=== PATIENT | male | born 1945 | race Caucasian/White ===

== ENCOUNTER 2016-12-04 07:33 | Inpatient (IN) | payer MEDICARE, OTHER ==
[~2016-12-04] VITALS: Ht 175.3 cm; Wt 74.8 kg
[2016-12-04] MEDS ORDERED: SODIUM CHLORIDE 0.9% 1,000 ML IV ONE (07:43)
[2016-12-04 08:27] LABS: HEMATOCRIT. 38.1 % (42.0-52.0); HEMOGLOBIN. 12.9 g/dL (14.0-18.0); MEAN CORPUSCULAR HEMOGLOBIN 29.8 pg (28.0-32.0); MEAN CORPUSCULAR VOLUME 88.2 fL (80.0-94.0); MEAN PLATELET VOLUME 9.9 fl (7.4-10.4); PLATELET 417 x1000/uL (130-400); RED BLOOD CELL COUNT 4.33 mill/uL (4.7-6.1); RED CELL DISTRIBUTION WIDTH 17.2 % (11.6-14.6)
[2016-12-04 08:36] LABS: INR 1.2; PROTHROMBIN TIME 12.3 sec (9.4-11.6)
[2016-12-04 08:45] LABS: CARBON DIOXIDE 17 mEq/L (21-32); CHLORIDE 99 mEq/L (98-107); ETHANOL BLOOD < 10 mg/dL; TROPONIN I 0.07 ng/mL (0.00-0.04)
[2016-12-04] MEDS ORDERED: SODIUM CHLORIDE 0.9% 1000ML BAG (SEPSIS BOLUS) IV ONE (09:00)
[2016-12-04] MEDS ORDERED: PIPERACILLIN/TAZ 3.375G PREMIX 50 ML IV ONE (09:00)
[2016-12-04] MEDS ORDERED: VANCOMYCIN 1 G PREMIX 200 ML IV ONE (09:00)
[2016-12-04 09:11] LABS: PLATELET ESTIMATE SLIGHTLY INCREASED
[2016-12-04 11:13] LABS: GLUCOSE URINE 2+ (NEGATIVE); KETONES URINE NEGATIVE (NEGATIVE); LEUKOCYTE ESTERASE URINE NEGATIVE (NEGATIVE); NITRITE URINE NEGATIVE (NEGATIVE); OCCULT BLOOD URINE 3+ (NEGATIVE); PROTEIN URINE 1+ (NEGATIVE); SPECIFIC GRAVITY URINE 1.008 (1.005-1.030)
[2016-12-04 11:21] LABS: CLARITY URINE CLEAR (CLEAR); COLOR URINE YELLOW (YELLOW)
[2016-12-04 11:43] LABS: *AMPHETAMINES SCREEN URINE NEGATIVE (NEGATIVE); *BARBITURATES SCREEN URINE NEGATIVE (NEGATIVE); *BENZODIAZEPINES SCREEN URINE NEGATIVE (NEGATIVE); *COCAINE SCREEN URINE NEGATIVE (NEGATIVE); CANNABINOID URINE SCREEN NEGATIVE (NEGATIVE); METHADONE URINE SCREEN NEGATIVE (NEGATIVE); OPIATES URINE SCREEN NEGATIVE (NEGATIVE); PHENCYCLIDINE URINE SCREEN NEGATIVE (NEGATIVE)
[2016-12-04] MEDS ORDERED: HYDROCODONE/ACETAMINOPHEN 5/325MG TABLET PO PRN (12:15)
[2016-12-04] MEDS ORDERED: ACETAMINOPHEN 325MG TABLET PO PRN (12:15)
[2016-12-04] MEDS ORDERED: MAGNESIUM/ALUMINUM HYDROXIDE/SIMETHICONE 30ML UDC PO PRN (12:15)
[2016-12-04] MEDS ORDERED: CLONIDINE 0.1MG TABLET PO PRN (12:15)
[2016-12-04] MEDS ORDERED: IPRATROPIUM/ALBUTEROL 0.5-3(2.5)MG/3ML NEB INH PRN (12:15)
[2016-12-04] MEDS ORDERED: ONDANSETRON HCL 4MG/2ML VIAL IV PRN (12:15)
[2016-12-04 12:30] VITALS: BP 120/70
[2016-12-04] MEDS ORDERED: PIPERACILLIN/TAZ 3.375G PREMIX 50 ML IV SCH (12:45)
[2016-12-04] MEDS: ENOXAPARIN 40MG/0.4ML SYR SUBCUT SCH (13:00)
[2016-12-04] MEDS: PIPERACILLIN/TAZ 3.375G PREMIX 50 ML IV SCH ×2 (16:26→22:12)
[2016-12-04] MEDS: SODIUM CHLORIDE 0.9% 1,000 ML IV SCH (16:27)
[2016-12-04 18:25] LABS: CREATINE KINASE MB FRACTION 5.8 ng/mL (0.5-3.6)
[2016-12-04 18:39] LABS: TROPONIN I 1.7 ng/mL (0.00-0.04)
[2016-12-04 20:00] VITALS: BP 155/83
[2016-12-04] MEDS ORDERED: DEXTROSE 50% WATER 50ML SYRINGE IV PRN (20:45)
[2016-12-04] MEDS: BLOOD SUGAR DIAGNOSTIC STRIP TEST SCH (21:30)
[2016-12-04] MEDS: INSULIN LISPRO 100 UNITS/ML SUBCUT SCH (21:38)
[2016-12-05] VITALS: BP 125/51
[2016-12-05 00:13] LABS: TROPONIN I 3.5 ng/mL (0.00-0.04)
[2016-12-05 04:00] VITALS: BP 114/51
[2016-12-05] MEDS: PIPERACILLIN/TAZ 3.375G PREMIX 50 ML IV SCH ×3 (06:23→21:09)
[2016-12-05] MEDS: SODIUM CHLORIDE 0.9% 1,000 ML IV SCH ×2 (06:23→15:40)
[2016-12-05] MEDS: BLOOD SUGAR DIAGNOSTIC STRIP TEST SCH ×4 (06:28→20:22)
[2016-12-05 07:52] LABS: BASOPHILS % 0.6 % (0.0-2.0); EOSINOPHILS % 0.5 % (0.0-5.0); HEMATOCRIT. 31.2 % (42.0-52.0); HEMOGLOBIN. 10.6 g/dL (14.0-18.0); LYMPHOCYTES % 11.1 % (20.0-50.0); MEAN CORPUSCULAR HEMOGLOBIN 29.8 pg (28.0-32.0); MEAN CORPUSCULAR VOLUME 87.2 fL (80.0-94.0); MEAN PLATELET VOLUME 9.4 fl (7.4-10.4); MONOCYTES % 8.1 % (2.0-8.0); NEUTROPHILS % 79.7 % (40.0-76.0); PLATELET 289 x1000/uL (130-400); RED BLOOD CELL COUNT 3.58 mill/uL (4.7-6.1); RED CELL DISTRIBUTION WIDTH 17.2 % (11.6-14.6)
[2016-12-05 08:00] VITALS: BP 127/70
[2016-12-05 08:13] LABS: AMYLASE 84 IU/L (25-115); CARBON DIOXIDE 25 mEq/L (21-32); CHLORIDE 103 mEq/L (98-107); CREATINE KINASE MB FRACTION 5.1 ng/mL (0.5-3.6)
[2016-12-05 08:25] LABS: TROPONIN I 3.6 ng/mL (0.00-0.04)
[2016-12-05] MEDS: INSULIN LISPRO 100 UNITS/ML SUBCUT SCH ×4 (08:40→20:24)
[2016-12-05 12:00] VITALS: BP 120/69
[2016-12-05] MEDS ORDERED: POTASSIUM CHLORIDE INJ 40 MEQ in DEXT 5% WATER 250 ML IV SCH (12:00)
[2016-12-05] MEDS ORDERED: POTASSIUM CHLORIDE 20MEQ TABLET SR PO SCH (14:30)
[2016-12-05 16:00] VITALS: BP 183/93
[2016-12-05] MEDS: ENOXAPARIN 40MG/0.4ML SYR SUBCUT SCH (16:46)
[2016-12-05 20:00] VITALS: BP 160/92
[2016-12-05] MEDS: POTASSIUM CHLORIDE 20MEQ TABLET SR PO SCH (21:10)
[2016-12-06] VITALS: BP_SYST 155; BP_SYST 158; BP_DIAS 82
[2016-12-06] MEDS: PIPERACILLIN/TAZ 3.375G PREMIX 50 ML IV SCH ×4 (03:20→20:39)
[2016-12-06] MEDS: SODIUM CHLORIDE 0.9% 1,000 ML IV SCH ×2 (06:21→18:20)
[2016-12-06] MEDS: BLOOD SUGAR DIAGNOSTIC STRIP TEST SCH ×4 (06:21→20:49)
[2016-12-06 07:18] LABS: BASOPHILS % 0.8 % (0.0-2.0); EOSINOPHILS % 0.6 % (0.0-5.0); HEMOGLOBIN. 10.7 g/dL (14.0-18.0); LYMPHOCYTES % 17.4 % (20.0-50.0); MEAN CORPUSCULAR HEMOGLOBIN 30.2 pg (28.0-32.0); MEAN CORPUSCULAR VOLUME 87.4 fL (80.0-94.0); MEAN PLATELET VOLUME 9.6 fl (7.4-10.4); MONOCYTES % 10.2 % (2.0-8.0); PLATELET 280 x1000/uL (130-400); RED BLOOD CELL COUNT 3.55 mill/uL (4.7-6.1); RED CELL DISTRIBUTION WIDTH 17.1 % (11.6-14.6)
[2016-12-06] MEDS: INSULIN LISPRO 100 UNITS/ML SUBCUT SCH ×4 (07:50→20:52)
[2016-12-06 08:00] VITALS: BP 156/58
[2016-12-06 08:56] LABS: CHLORIDE 104 mEq/L (98-107)
[2016-12-06 09:07] LABS: CARBON DIOXIDE 27 mEq/L (21-32)
[2016-12-06] MEDS: POTASSIUM CHLORIDE 20MEQ TABLET SR PO SCH (09:42)
[2016-12-06 10:53] LABS: HEPATITIS B CORE AB IGM NEGATIVE; HEPATITIS B SURFACE ANTIGEN NEGATIVE
[2016-12-06 12:00] VITALS: BP 140/80
[2016-12-06] MEDS: ENOXAPARIN 40MG/0.4ML SYR SUBCUT SCH (13:19)
[2016-12-06 14:54] LABS: HEPATITIS A AB IGM NEGATIVE (NEGATIVE)
[2016-12-06 16:00] VITALS: BP 145/81
[2016-12-06 20:00] VITALS: BP 148/98
[2016-12-07] VITALS: BP_SYST 146; BP_SYST 171; BP_DIAS 76; BP_DIAS 82
[2016-12-07] MEDS: SODIUM CHLORIDE 0.9% 1,000 ML IV SCH (00:39)
[2016-12-07] MEDS: PIPERACILLIN/TAZ 3.375G PREMIX 50 ML IV SCH ×2 (02:57→08:33)
[2016-12-07 04:15] VITALS: BP 146/89
[2016-12-07] MEDS: BLOOD SUGAR DIAGNOSTIC STRIP TEST SCH (06:31)
[2016-12-07] MEDS: INSULIN LISPRO 100 UNITS/ML SUBCUT SCH (07:29)
[2016-12-07 08:20] VITALS: BP 161/91
[2016-12-07 08:42] VITALS: BP 161/91
[2016-12-07] MEDS ORDERED: POTASSIUM CHLORIDE 20MEQ TABLET SR PO SCH (09:00)
[2016-12-07 11:30] VITALS: BP 134/81
[2016-12-07 11:37] VITALS: BP 134/81
== END 2016-12-07 12:30 | disposition home or self-care (01) | DRG 871 ==
LOC: ER 07:47 → CANRESERV 09:45 → ENRESERV 09:45 → EDBEDREQTM 10:14 → EDBEDREQ 10:14 → EDBEDREQSVC 10:14 → ENRESERV 10:42 → CANRESERV 10:42 → EDBEDREQSVC 10:58 → EDBEDREQ 10:58 → ENRESERV 11:00 → 6WST 11:13
PROVIDERS: ADMIT Internal Medicine; ATTEND Internal Medicine
DX: A41.9 Sepsis, unspecified organism (principal); K85.90 Acute pancreatitis without necrosis or infection, unspecified; K83.0 Cholangitis; E44.0 Moderate protein-calorie malnutrition; K80.00 Calculus of gallbladder with acute cholecystitis without obstruction; C25.9 Malignant neoplasm of pancreas, unspecified; E87.1 Hypo-osmolality and hyponatremia; K86.1 Other chronic pancreatitis; E11.65 Type 2 diabetes mellitus with hyperglycemia; I07.1 Rheumatic tricuspid insufficiency; D63.0 Anemia in neoplastic disease; E78.00 Pure hypercholesterolemia, unspecified; E78.5 Hyperlipidemia, unspecified; E86.0 Dehydration; E87.6 Hypokalemia; I10 Essential (primary) hypertension; I27.20 Pulmonary hypertension, unspecified; Z68.24 Body mass index [BMI] 24.0-24.9, adult; Z86.73 Personal history of transient ischemic attack (TIA), and cerebral infarction without residual deficits
CPT/HCPCS: 36415; 70450; 71010; 74000; 74181; 76705; 78227; 80053; 80061; 80076; 80305; 81001; 82150; 82248; 82550; 82553; 82962; 83036; 83605; 83690; 83735; 83880; 84443; 84484; 85025; 85610; 86301; 86705; 86709; 86803; 87040; 87077; 87086; 87340; 93005; 93306; 93970; 96361; 96365; 96368; 97162; 97166; 99291; A9537; G0482; J1650; J1815; J2543; J3370; J3480; J7030; J7060

== ENCOUNTER 2017-06-29 09:36 | Inpatient (IN) | payer MEDICARE, OTHER ==
[~2017-06-29] VITALS: Ht 182.9 cm; Wt 59.0 kg
[2017-06-29] VITALS: BP 99/60
[2017-06-29] MEDS ORDERED: DEXTROSE 50% WATER 50ML SYRINGE IV ONE (09:50)
[2017-06-29 10:50] LABS: BASOPHILS % 0.3 % (0.0-2.0); EOSINOPHILS % 0.1 % (0.0-5.0); HEMATOCRIT. 26.3 % (42.0-52.0); HEMOGLOBIN. 8.9 g/dL (14.0-18.0); LYMPHOCYTES % 32.7 % (20.0-50.0); MEAN CORPUSCULAR HEMOGLOBIN 30.5 pg (28.0-32.0); MEAN CORPUSCULAR VOLUME 90.3 fL (80.0-94.0); MEAN PLATELET VOLUME 7.6 fl (7.4-10.4); MONOCYTES % 13.5 % (2.0-8.0); NEUTROPHILS % 53.4 % (40.0-76.0); PLATELET 206 x1000/uL (130-400); RED BLOOD CELL COUNT 2.92 mill/uL (4.7-6.1); RED CELL DISTRIBUTION WIDTH 16.4 % (11.6-14.6)
[2017-06-29 10:57] LABS: INR 1.3; PROTHROMBIN TIME 13.1 sec (9.4-11.6)
[2017-06-29 10:59] LABS: CHLORIDE 104 mEq/L (98-107)
[2017-06-29] MEDS ORDERED: LOT105 MT (11:08)
[2017-06-29] MEDS ORDERED: LISI40TA4 PO (11:08)
[2017-06-29] MEDS ORDERED: METF850T2 MT (11:09)
[2017-06-29] MEDS ORDERED: GLIP10TA10 PO (11:09)
[2017-06-29] MEDS ORDERED: ATEN-42 MT (11:10)
[2017-06-29] MEDS ORDERED: CHOL500010 MT (11:10)
[2017-06-29] MEDS ORDERED: LOPE2TAB26 PO (11:11)
[2017-06-29] MEDS ORDERED: DIPHENHYDRAMINE 50MG/ML VIAL IV PRN (12:30)
[2017-06-29] MEDS ORDERED: DOCUSATE SODIUM 100MG CAPSULE PO PRN (12:30)
[2017-06-29] MEDS ORDERED: GUAIFENESIN 200MG/10ML SUGAR FREE UDC PO PRN (12:30)
[2017-06-29] MEDS ORDERED: NITROGLYCERIN 0.4MG TABLET SL SL PRN (12:30)
[2017-06-29] MEDS ORDERED: CLONIDINE 0.1MG TABLET PO PRN (12:30)
[2017-06-29] MEDS ORDERED: DEXTROSE 50% WATER 50ML SYRINGE IV PRN (12:30)
[2017-06-29] MEDS ORDERED: MAGNESIUM/ALUMINUM HYDROXIDE/SIMETHICONE 30ML UDC PO PRN (12:30)
[2017-06-29] MEDS ORDERED: NA PHOS,M-B/NA PHOS,DI-BA ENEMA 118ML PR PRN (12:30)
[2017-06-29] MEDS ORDERED: ZOLPIDEM TARTRATE 5MG TABLET PO PRN (12:30)
[2017-06-29] MEDS ORDERED: ONDANSETRON HCL 4MG/2ML VIAL IV PRN (12:30)
[2017-06-29] MEDS ORDERED: IPRATROPIUM/ALBUTEROL 0.5-3(2.5)MG/3ML NEB INH PRN (12:30)
[2017-06-29] MEDS ORDERED: ACETAMINOPHEN 325MG TABLET PO PRN (12:30)
[2017-06-29] MEDS ORDERED: TRAMADOL 50MG TABLET PO PRN (12:30)
[2017-06-29] MEDS ORDERED: POTASSIUM CHLORIDE 20MEQ/PACKET PO ONE (12:45)
[2017-06-29] MEDS ORDERED: MAGNESIUM 2 G PREMIX 50 ML IV ONE (12:45)
[2017-06-29 13:33] LABS: KETONES URINE NEGATIVE (NEGATIVE); LEUKOCYTE ESTERASE URINE NEGATIVE (NEGATIVE); NITRITE URINE NEGATIVE (NEGATIVE); OCCULT BLOOD URINE NEGATIVE (NEGATIVE); PH URINE 5.5 (4.5-8.0); PROTEIN URINE NEGATIVE (NEGATIVE); SPECIFIC GRAVITY URINE 1.008 (1.005-1.030); UROBILINOGEN URINE 0.2 E.U./dL (0.2-1.0)
[2017-06-29] MEDS ORDERED: LEVOFLOXACIN 500MG PREMIX 100 ML IV NR (13:33)
[2017-06-29 13:35] LABS: CLARITY URINE SL HAZY (CLEAR); COLOR URINE YELLOW (YELLOW)
[2017-06-29 14:00] VITALS: BP 102/77
[2017-06-29] MEDS ORDERED: SODIUM CHLORIDE 0.9% 1000ML BAG (SEPSIS BOLUS) IV ONE (14:15)
[2017-06-29 14:20] VITALS: BP 109/77
[2017-06-29 16:00] VITALS: BP 121/75
[2017-06-29] MEDS: METRONIDAZOLE 500 MG PREMIX 100 ML IV SCH (16:55)
[2017-06-29] MEDS: ENOXAPARIN 40MG/0.4ML SYR SUBCUT SCH (16:56)
[2017-06-29] MEDS: BLOOD SUGAR DIAGNOSTIC STRIP TEST SCH ×2 (17:14→21:39)
[2017-06-29] MEDS: INSULIN LISPRO 100 UNITS/ML SUBCUT SCH ×2 (17:15→21:00)
[2017-06-29] MEDS ORDERED: CEFTRIAXONE 1 G PREMIX 50 ML IV SCH (18:00)
[2017-06-29 18:11] LABS: CREATINE KINASE MB FRACTION 1.2 ng/mL (0.5-3.6)
[2017-06-29 20:00] VITALS: BP 97/63
[2017-06-29] MEDS: FAMOTIDINE 20MG TABLET PO SCH (21:41)
[2017-06-30] VITALS: BP 99/60
[2017-06-30 01:52] LABS: CREATINE KINASE MB FRACTION 0.9 ng/mL (0.5-3.6)
[2017-06-30 04:00] VITALS: BP 110/70
[2017-06-30] MEDS: BLOOD SUGAR DIAGNOSTIC STRIP TEST SCH ×4 (07:20→21:21)
[2017-06-30] MEDS: INSULIN LISPRO 100 UNITS/ML SUBCUT SCH ×4 (07:50→21:00)
[2017-06-30 08:00] VITALS: BP 99/57
[2017-06-30] MEDS: FAMOTIDINE 20MG TABLET PO SCH ×2 (09:30→20:07)
[2017-06-30] MEDS: METRONIDAZOLE 500 MG PREMIX 100 ML IV SCH ×3 (09:33→20:05)
[2017-06-30 12:00] VITALS: BP 114/77
[2017-06-30] MEDS: ENOXAPARIN 40MG/0.4ML SYR SUBCUT SCH (15:52)
[2017-06-30] MEDS: LEVOFLOXACIN 500MG PREMIX 100 ML IV SCH (15:53)
[2017-06-30 16:00] VITALS: BP 129/90
[2017-06-30] MEDS: CEFTRIAXONE 1 G PREMIX 50 ML IV SCH (17:48)
[2017-06-30 20:00] VITALS: BP 117/69
[2017-07-01 00:12] VITALS: BP 125/78
[2017-07-01] MEDS: METRONIDAZOLE 500 MG PREMIX 100 ML IV SCH ×3 (03:24→22:27)
[2017-07-01 04:00] VITALS: BP 98/57
[2017-07-01] MEDS: BLOOD SUGAR DIAGNOSTIC STRIP TEST SCH ×4 (07:40→21:00)
[2017-07-01] MEDS: INSULIN LISPRO 100 UNITS/ML SUBCUT SCH ×4 (07:40→21:00)
[2017-07-01 07:48] VITALS: BP 107/68
[2017-07-01] MEDS: CEFTRIAXONE 1 G PREMIX 50 ML IV SCH ×2 (09:00→10:40)
[2017-07-01] MEDS: FAMOTIDINE 20MG TABLET PO SCH ×2 (09:29→22:27)
[2017-07-01 11:11] VITALS: BP 116/81
[2017-07-01] MEDS: LEVOFLOXACIN 500MG PREMIX 100 ML IV SCH (16:03)
[2017-07-01] MEDS: ENOXAPARIN 40MG/0.4ML SYR SUBCUT SCH (16:04)
[2017-07-01 16:09] VITALS: BP 111/75
[2017-07-01 20:00] VITALS: BP 127/74
[2017-07-02] VITALS: BP 139/69
[2017-07-02 04:00] VITALS: BP 110/70
[2017-07-02] MEDS: BLOOD SUGAR DIAGNOSTIC STRIP TEST SCH ×4 (06:55→21:42)
[2017-07-02] MEDS: METRONIDAZOLE 500MG TABLET PO SCH ×3 (06:55→21:35)
[2017-07-02] MEDS: INSULIN LISPRO 100 UNITS/ML SUBCUT SCH ×4 (07:50→21:42)
[2017-07-02 08:02] VITALS: BP 109/69
[2017-07-02] MEDS: CEFTRIAXONE 1 G PREMIX 50 ML IV SCH (08:29)
[2017-07-02] MEDS: FAMOTIDINE 20MG TABLET PO SCH ×2 (08:29→21:35)
[2017-07-02] MEDS: LEVOFLOXACIN 500MG TABLET PO SCH (11:23)
[2017-07-02 12:00] VITALS: BP 124/85
[2017-07-02] MEDS: LEVETIRACETAM 500MG TABLET PO SCH (14:11)
[2017-07-02 16:00] VITALS: BP 125/79
[2017-07-02 20:00] VITALS: BP 95/55
[2017-07-03] VITALS: BP 115/70
[2017-07-03 04:00] VITALS: BP 106/63
[2017-07-03] MEDS: METRONIDAZOLE 500MG TABLET PO SCH ×3 (06:38→21:34)
[2017-07-03] MEDS: LEVETIRACETAM 500MG TABLET PO SCH ×2 (06:38→17:46)
[2017-07-03] MEDS: BLOOD SUGAR DIAGNOSTIC STRIP TEST SCH ×4 (06:47→21:49)
[2017-07-03] MEDS: INSULIN LISPRO 100 UNITS/ML SUBCUT SCH ×4 (07:39→21:49)
[2017-07-03 08:00] VITALS: BP 104/65
[2017-07-03] MEDS: FAMOTIDINE 20MG TABLET PO SCH ×2 (08:12→21:33)
[2017-07-03] MEDS: CEFTRIAXONE 1 G PREMIX 50 ML IV SCH (08:12)
[2017-07-03] MEDS: LEVOFLOXACIN 500MG TABLET PO SCH (11:54)
[2017-07-03 12:00] VITALS: BP 130/76
[2017-07-03 13:15] LABS: BASOPHILS % 0.6 % (0.0-2.0); EOSINOPHILS % 0.3 % (0.0-5.0); HEMATOCRIT. 30.1 % (42.0-52.0); HEMOGLOBIN. 10.2 g/dL (14.0-18.0); LYMPHOCYTES % 27.3 % (20.0-50.0); MEAN CORPUSCULAR HEMOGLOBIN 30.5 pg (28.0-32.0); MEAN PLATELET VOLUME 8.2 fl (7.4-10.4); MONOCYTES % 10.6 % (2.0-8.0); NEUTROPHILS % 61.2 % (40.0-76.0); PLATELET 267 x1000/uL (130-400); RED BLOOD CELL COUNT 3.35 mill/uL (4.7-6.1)
[2017-07-03 13:45] LABS: CHLORIDE 104 mEq/L (98-107)
[2017-07-03 16:00] VITALS: BP 129/87
[2017-07-03 20:00] VITALS: BP 104/66
[2017-07-03] MEDS: ATORVASTATIN CALCIUM 20MG TABLET PO SCH (21:34)
[2017-07-04 00:15] VITALS: BP 114/73
[2017-07-04 04:00] VITALS: BP 106/68
[2017-07-04] MEDS: METRONIDAZOLE 500MG TABLET PO SCH ×3 (06:25→21:42)
[2017-07-04] MEDS: LEVETIRACETAM 500MG TABLET PO SCH ×2 (06:25→18:49)
[2017-07-04] MEDS: BLOOD SUGAR DIAGNOSTIC STRIP TEST SCH ×4 (06:30→21:42)
[2017-07-04] MEDS: INSULIN LISPRO 100 UNITS/ML SUBCUT SCH ×4 (07:36→21:00)
[2017-07-04 07:39] VITALS: BP 109/65
[2017-07-04] MEDS: FAMOTIDINE 20MG TABLET PO SCH ×2 (09:04→21:39)
[2017-07-04] MEDS: CEFTRIAXONE 1 G PREMIX 50 ML IV SCH (09:04)
[2017-07-04] MEDS: LEVOFLOXACIN 500MG TABLET PO SCH (11:03)
[2017-07-04 12:31] VITALS: BP 113/82
[2017-07-04 16:28] VITALS: BP 119/74
[2017-07-04 20:30] VITALS: BP 138/87
[2017-07-04] MEDS: ATORVASTATIN CALCIUM 20MG TABLET PO SCH (21:39)
[2017-07-05 00:47] VITALS: BP 104/67
[2017-07-05 04:00] VITALS: BP 118/70
[2017-07-05] MEDS: METRONIDAZOLE 500MG TABLET PO SCH (06:13)
[2017-07-05] MEDS: LEVETIRACETAM 500MG TABLET PO SCH (06:13)
[2017-07-05] MEDS: BLOOD SUGAR DIAGNOSTIC STRIP TEST SCH ×2 (06:20→12:20)
[2017-07-05] MEDS: INSULIN LISPRO 100 UNITS/ML SUBCUT SCH ×2 (07:50→12:50)
[2017-07-05 08:00] VITALS: BP 127/73
[2017-07-05] MEDS: FAMOTIDINE 20MG TABLET PO SCH (09:55)
[2017-07-05] MEDS: CEFTRIAXONE 1 G PREMIX 50 ML IV SCH (09:55)
[2017-07-05 12:00] VITALS: BP 121/90
[2017-07-05 13:10] VITALS: BP 121/80
[2017-07-05] MEDS: LEVOFLOXACIN 500MG TABLET PO SCH (13:33)
[2017-07-05 14:00] VITALS: BP 124/76
== END 2017-07-05 15:10 | disposition home health service (06) | DRG 871 ==
LOC: ER 09:36 → 6WST 11:47 → EDBEDREQ 11:50 → ENRESERV 11:51 → SUPCPDRO 12:26
PROVIDERS: ADMIT Internal Medicine; ATTEND Internal Medicine
DX: A41.9 Sepsis, unspecified organism (principal); E43 Unspecified severe protein-calorie malnutrition; I63.9 Cerebral infarction, unspecified; I62.03 Nontraumatic chronic subdural hemorrhage; D61.810 Antineoplastic chemotherapy induced pancytopenia; C25.9 Malignant neoplasm of pancreas, unspecified; E11.42 Type 2 diabetes mellitus with diabetic polyneuropathy; E11.649 Type 2 diabetes mellitus with hypoglycemia without coma; E83.42 Hypomagnesemia; M48.02 Spinal stenosis, cervical region; E87.1 Hypo-osmolality and hyponatremia; Z68.1 Body mass index [BMI] 19.9 or less, adult; J44.9 Chronic obstructive pulmonary disease, unspecified; D64.9 Anemia, unspecified; E87.6 Hypokalemia; R65.20 Severe sepsis without septic shock; D18.1 Lymphangioma, any site; T45.1X5A Adverse effect of antineoplastic and immunosuppressive drugs, initial encounter; I10 Essential (primary) hypertension; E78.00 Pure hypercholesterolemia, unspecified; R29.6 Repeated falls; S51.812A Laceration without foreign body of left forearm, initial encounter; W19.XXXA Unspecified fall, initial encounter; Y93.89 Activity, other specified; Y99.8 Other external cause status; Z85.46 Personal history of malignant neoplasm of prostate; Y92.89 Other specified places as the place of occurrence of the external cause; Z79.899 Other long term (current) drug therapy
CPT/HCPCS: 36415; 70450; 70544; 70553; 71045; 72141; 72148; 80053; 81003; 82550; 82553; 82962; 83605; 83735; 83880; 84484; 85025; 85610; 87086; 92610; 93005; 93308; 93880; 93970; 96365; 97110; 97116; 97162; 97166; 97530; 99285; A6261; J0696; J1650; J1956; J3475; J3490; J7030; J7040; J7050